=== PATIENT | female | born 1950 | race Caucasian/White ===

== ENCOUNTER → 2019-11-16 | Outpatient (CLI) | payer MEDICARE ==
[2019-11-16 10:55] LABS: Basophils # (A) 0.1 k/uL (0-0.2); Basophils % (A) 1 %; Eosinophils # (A) 0.1 k/uL (0-0.7); Eosinophils % (A) 2 %; HCT 44.8 % (34.0-46.0); HGB 13.6 gm/dL (11.4-16.0); Hypochromasia Slight; Lymphocytes # (A) 2.1 k/uL (1.0-4.8); Lymphocytes % (A) 32 %; MCH 24.1 pg (25.0-35.0); MCHC 30.3 g/dL (31.0-37.0); MCV 79.8 fL (80.0-100.0); Mean Platelet Volume 6.5; Monocytes # (A) 0.4 k/uL (0-1.0); Monocytes % (A) 6 %; Neutrophils # (A) 3.7 k/uL (1.3-7.7); Neutrophils % (A) 56 %; Platelet Count 309 k/uL (150-450); RBC 5.62 m/uL (3.80-5.40); RDW 13.8 % (11.5-15.5); WBC 6.6 k/uL (3.8-10.6)
[2019-11-16 11:05] LABS: Potassium 4.4 mmol/L (3.5-5.1)
== END | disposition home or self-care (01) ==
LOC: LABPAT 10:17
PROVIDERS: ATTEND Orthopaedic Surgery
DX: Z01.818 Encounter for other preprocedural examination (principal); M65.331 Trigger finger, right middle finger
CPT/HCPCS: 36415; 80051; 85025

== ENCOUNTER 2019-11-20 07:06 | Day surgery (SDC) | payer MEDICARE ==
[2019-11-18 10:23] VITALS: BMI 26.4
--- NOTE | 2019-11-19 13:50 | HP ---
HISTORY AND PHYSICAL DATE OF SURGERY: 11/20/2019. Zenia Nunez is a 69-year-old patient seen with symptomatic right middle finger trigger finger. We discussed options for treatment, she elected to proceed with release A1 deejay, right middle finger, consent was obtained. PAST MEDICAL HISTORY: Hyperlipidemia, hypertension, hypothyroidism, [id number] diabetes. PAST SURGICAL HISTORY: Cataract surgery. DAILY MEDICATIONS: 1. Lisinopril. 2. Simvastatin. 3. Synthroid. 4. Zoloft. ALLERGIES: CODEINE. SOCIAL HISTORY: She denies current tobacco use. PHYSICAL EVALUATION OF THE RIGHT HAND: She has tenderness along the A1 deejay area of the right middle finger. There is clicking, catching, and locking of the right middle finger. There is good perfusion sensation distally. X-rays of the right hand reveals some osteoarthritic changes, especially of the DIP joint, right middle finger. IMPRESSION: 1. Right middle finger trigger finger. 2. Hypertension. 3. Hyperlipidemia. 4. Hypothyroidism. PLAN: Release A1 deejay, right middle finger. MMPEÑAL / CAMELIAN: [id number] /
[~2019-11-20 07:06] MED LIST: DEXAMETHASONE SOD PHOSPHATE 10 MG/ML 1 ML VIAL IV ONE; HYDROmorphone 0.5 MG/0.5 ML SYRINGE IVP PRN; LACTATED RINGERS 1,000 ML IV SCH; LIDOCAINE 1% (10MG/ML) FOR IV START INTRADERMA PRN; MIDAZOLAM 2 MG/2 ML VIAL IV PRN; ONDANSETRON 4 MG/2 ML VIAL IVP ONE; SCOPOLAMINE 1.5MG/72HR PATCH TRANSDERM ONE
[2019-11-20 07:23] VITALS: TEMP 98.8
[2019-11-20] MEDS ORDERED: KETAMINE 10 MG/ML 20 ML VIAL ONE (07:52)
[2019-11-20] MEDS ORDERED: PROPOFOL 10 MG/ML 20 ML VIAL IV ONE (07:52)
[2019-11-20] MEDS ORDERED: MIDAZOLAM 2 MG/2 ML VIAL ONE (07:52)
[2019-11-20] MEDS ORDERED: fentaNYL (PF) 50 MCG/ML 2 ML AMP ONE (07:52)
[2019-11-20] MEDS ORDERED: BUPIVACAINE (PF) 0.25% 30 ML VIAL SQ ONE ×3 (07:59→08:09)
--- NOTE | 2019-11-20 08:49 | P.OP ---
Date of Procedure: 11/20/19 Preoperative Diagnosis: Right middle finger trigger finger Postoperative Diagnosis: Right middle finger trigger finger Procedure(s) Performed: Release A1 deejay right middle finger Anesthesia: MAC, local Surgeon: Ricci Valdivia Estimated Blood Loss (ml): 0 Pathology: none sent Condition: stable Disposition: PACU Indications for Procedure: 69-year-old patient seen with symptomatic right middle finger trigger finger. After options for treatment were discussed she elected to proceed with release A1 deejay right middle finger. Operative Findings: See description of procedure Description of Procedure: The patient was taken to the operative suite. The patient received preoperative IV antibiotics. The patient received IV sedation by the department of anesthesia. A well-padded tourniquet placed proximal right upper extremity. Right upper extremity was prepped and draped in the normal sterile orthopedic fashion. The proposed incision site was infiltrated with 5 mL quarter percent plain Marcaine. When sufficient local anesthesia was noted the extremity was elevated and the tourniquet was insufflated to 250. I made an incision in the area A1 deejay right middle finger. I carefully dissected down to the A1 pu lley. The A1 flow was identified. I made a small chris incision in the central area of the A1 deejay. I now released A1 deejay proximally and distally with blunt tenotomies. There was complete release of the A1 deejay. There was good excursion of the tendon with no impingement. There was good hemostasis. The wound was irrigated. The skin margins were proximal nylon suture. Sterile dressings were applied. The tourniquet was released with immediate capillary refill of all digits noted. The patient transferred to recovery stable condition.
[2019-11-20 09:02] VITALS: BP 131/81; PULSE 71; RESP 18
== END 2019-11-20 09:16 | disposition home or self-care (01) ==
LOC: OR 07:06
PROVIDERS: ATTEND Orthopaedic Surgery
DX: M65.331 Trigger finger, right middle finger (principal); I10 Essential (primary) hypertension; E78.5 Hyperlipidemia, unspecified; E03.9 Hypothyroidism, unspecified; E11.9 Type 2 diabetes mellitus without complications; Z88.5 Allergy status to narcotic agent; Z98.41 Cataract extraction status, right eye; Z98.42 Cataract extraction status, left eye; Z79.890 Hormone replacement therapy; Z79.899 Other long term (current) drug therapy
CPT/HCPCS: 26055; J2250; J1100; J0690; J2405; J3010; J2704